=== PATIENT | female | born 1995 | race Caucasian/White ===

== ENCOUNTER → 2017-08-05 | Outpatient (CLI) | payer BC, OTHER ==
--- NOTE | 2017-08-05 13:49 | Diagnostic Imaging Report ---
PROCEDURE: US Gallbladder. TECHNIQUE: Multiple real-time grayscale images were obtained over the right upper quadrant in various projections. INDICATION: Right upper quadrant pain. FINDINGS: The pancreas is partially obscured by bowel gas with no definite abnormality. Visualized portions of the pancreas appear unremarkable. The liver is fairly homogeneous with no focal lesion seen. There is hepatopetal flow noted in the portal vein. The gallbladder demonstrates no stones or wall thickening. No pericholecystic fluid. The CBD is 2 mm in caliber. The right kidney is 10.3 cm in length with no hydronephrosis or focal lesion. There is no fluid collection or free fluid in the upper right side of the abdomen seen. Sonographic Oakley sign is reportedly negative. IMPRESSION: Unremarkable exam. Dictated on workstation # [id number]
== END ==
LOC: RAD 09:22
PROVIDERS: ATTEND Obstetrics & Gynecology
DX: R10.11 Right upper quadrant pain (principal)
CPT/HCPCS: 76705

== ENCOUNTER → 2017-08-18 | Outpatient (CLI) | payer BC, OTHER ==
[~2017-08-18] MED LIST: CATHETER FLUSH 10 ML SYR IV PRN
--- NOTE | 2017-08-18 13:42 | Diagnostic Imaging Report ---
CLINICAL INDICATION: Patient with right upper quadrant pain. COMPARISON: Gallbladder ultrasound dated 08/05/2017. PROCEDURE: The patient was administered 5.03 millicuries of technetium 99m Choletec. After 60 minutes of the images, one can of Ensure was drink followed by another 60 minutes of imaging. A nuclear medicine hepatobiliary scan with ejection fraction was performed. FINDINGS: There is prompt uptake and excretion of radiotracer by the liver. Activity is visible in the gallbladder by 15 minutes and the small bowel by 30 minutes. Ejection fraction of the gallbladder is calculated at 43% (normal >35%). The gallbladder visibly empties on the scans following the ingestion of Ensure. IMPRESSION: Normal hepatobiliary scan with normal gallbladder ejection fraction. Dictated by: Dictated on workstation # [id number]
== END ==
LOC: CARD 09:13
PROVIDERS: ATTEND Obstetrics & Gynecology
DX: R10.11 Right upper quadrant pain (principal)
CPT/HCPCS: 78227

== ENCOUNTER 2017-11-30 13:14 | Emergency (ER) | payer BC ==
[~2017-11-30] VITALS: Ht 162.6 cm; Wt 95.3 kg
[2017-11-30] MEDS ORDERED: CYCLOBENZAPRINE 10 MG (FLEXERIL) TAB PO STA (13:50)
[2017-11-30] MEDS ORDERED: HYDROcodone/APAP 5 MG/325 MG (LORTAB) TAB PO STA (13:50)
--- NOTE | 2017-11-30 14:04 | ED Back Pain ---
General Chief Complaint: Back Problems Stated Complaint: PULLED MUSCLE IN BACK Nursing Triage Note: ARRIVED VIA AMB TO ROOM 05. COMPLAINS OF SEVERE BACK PAIN AFTER LIFTING A BOX TODAY. STATES SHE TOOK A HYDRO 5 BEFORE COMING WHICH HAS HELPED SOME. Nursing Sepsis Screen: No Definite Risk Source of Information: Patient Exam Limitations: No Limitations History of Present Illness Time Seen by Provider: 13:45 Initial Comments 22-year-old female patient presents to the emergency Department with reports of severe low back pain after lifting a box earlier today. Denies feeling anything pop or crack. Reports muscle spasms with movement. Patient does report taking one of her "old hydrocodone 5's" which helped relieve some of the pain. Location: Paraspinous Muscles Timing/Duration: 1-3 Hours Pain/Injury Location: Back Radiation: Other (denies radiation) Method of Injury: Other (lifting a box) Modifying Factors: Worse With Movement, Improves With Pain Medication, Worse With Other (worsened palpation) Associated Symptoms: muscle spasms, No numbness in legs/feet, No tingling in legs/feet, No sensory/motor loss, lower back pain, No loss of bladder control, No loss of bowel control Allergies and Home Medications Allergies Coded Allergies: No Known Drug Allergies (Unverified , 11/30/17) Home Medications Naproxen 500 Mg Tablet, 500 MG PO BID PRN for PAIN-MODERATE, #20 Ref 0 Prescribed by: HERBERT RICARDO on 11/30/171406 Orphenadrine Citrate 100 Mg Tablet.er, 100 MG PO BID PRN for SPASMS, #10 Ref 0 Prescribed by: HERBERT RICARDO on 11/30/171406 Prednisone 20 Mg Tab, 40 MG PO DAILY, #10 Ref 0 Prescribed by: HERBERT RICARDO on 11/30/177 Constitutional: no symptoms reported Respiratory: no symptoms reported Cardiovascular: no symptoms reported Gastrointestinal: No abdominal pain, No constipation, No diarrhea, No nausea, No vomiting Genitourinary: No decreased output, No dysuria, No frequency, No hematuria, No incontinence, No pain Musculoskeletal: see HPI, back pain, No joint pain, No neck pain Skin: no symptoms reported Psychiatric/Neurological: Denies Numbness, Denies Paresthesia, Denies Tingling , Denies Weakness All Other Systems Reviewed Negative Unless Noted: Yes (Negative excepted noted.) Past Klwncdw-Nawwop-Ujqryx Hx Patient Social History Recent Foreign Travel: No Contact w/Someone Who Travel: No Recent Infectious Disease Expo: No Surgeries History of Surgeries: Yes Surgeries: Tonsillectomy Respiratory History of Respiratory Disorde: No Cardiovascular History of Cardiac Disorders: No Neurological History of Neurological Disord: No Reproductive System : No (DEPO SHOT) Genitourinary History of Genitourinary Disor: No Gastrointestinal History of Gastrointestinal Di: No Musculoskeletal History of Musculoskeletal Dis: No Endocrine History of Endocrine Disorders: No HEENT History of HEENT Disorders: No Cancer History of Cancer: No Psychosocial History of Psychiatric Problem: No Integumentary History of Skin or Integumenta: No Reviewed Nursing Assessment Reviewed/Agree w Nursing PMH: Yes Family Medical History Significant Family History: No Pertinent Family Hx Physical Exam Vital Signs Vital Sign - Last 12Hours 11/30/17 11/30/17 13:23 14:21 Temp 98.0 Pulse 83 Resp 16 B/P (MAP) 139/92 (108) Pulse Ox 99 Capillary Refill : Less Than 3 Seconds General Appearance: No Apparent Distress, WD/WN HEENT: PERRL/EOMI, Pharynx Normal Neck: Full Range of Motion, Normal Inspection, Non Tender, Supple Cardiovascular: Regular Rate, Rhythm, No Edema, No Murmur, Normal Peripheral Pulses Respiratory: Lungs Clear, Normal Breath Sounds, No Accessory Muscle Use, No Respiratory Distress Peripheral Pulses: 2+ Radial Pulses (R) (right posterior tibialis 2+), 2+ Radial Pulses (L) (left posterior tibialis 2+) Gastrointestinal: Normal Bowel Sounds, No Organomegaly, Non Tender, Soft, No Distended Back: Normal Inspection, Decreased Range of Motion, Muscle Spasm (bilateral lumbar paraspinous muscle tenderness and muscle spasm with right greater than left), Vertebral Tenderness (mild lumbar vertebral tenderness without deformity or step-off.) Extremity: Normal Capillary Refill, Normal Inspection, Normal Range of Motion, Non Tender, No Calf Tenderness, No Pedal Edema Neurologic/Psychiatric: Alert, Oriented x3, No Motor/Sensory Deficits, Normal Mood/Affect Skin: Normal Color, Warm/Dry, No Ecchymosis Progress/Results/Core Measures Results/Orders My Orders Orders - HERBERT RICARDO Cyclobenzaprine Tablet (Flexeril Tablet) (11/30/17 13:50) Hydrocodone/Apap 5/325 Tablet (Lortab 5 (11/30/17 13:50) Vital Signs/I&O Vital Sign - Last 12Hours 11/30/17 11/30/17 13:23 14:21 Temp 98.0 98.0 Pulse 83 83 Resp 16 16 B/P (MAP) 139/92 (108) Pulse Ox 99 Blood Pressure Mean: 108 Departure Communication (Admissions) Progress Notes Patient seen and evaluated. Patient given one hydrocodone 5/325 mg and Flexeril 10 mg in the emergency department 1 dose. Plan for discharge to home with oral prednisone 40 mg daily, Norflex 100 mg twice daily as needed for spasm , and Naprosyn 500 mg by mouth twice a day as needed for pain. Patient also use Tylenol as needed for pain. Impression Impression: Primary Impression: Low back strain Qualified Codes: S39.012A - Strain of muscle, fascia and tendon of lower back , initial encounter Disposition: HOME, SELF-CARE Condition: Improved Departure-Patient Inst. Decision time for Depature: 13:59 Referrals: CARRIE GUPTA MD (PCP/Family) Primary Care Physician Patient Instructions: Lumbar Muscle Strain (DC) Add. Discharge Instructions: All discharge instructions reviewed with patient and/or family. Voiced understanding. Medications as instructed. Tylenol Extra Strength over-the- counter as directed for pain. Ice packs or heating pads as needed for pain. Avoid heavy lifting, pushing, pulling, twisting, bending, climbing 7 days. Increase activity as tolerated. Follow-up with your family practitioner for recheck if no improvement in symptoms in 7-10 days. Return to the emergency department for worsened symptoms, numbness, weakness, bowel incontinence, bladder incontinence, numbness of the genitals, abdominal pain, or any other concerns. Scripts Naproxen (Naprosyn) 500 Mg Tablet 500 MG PO BID Y for PAIN-MODERATE, #20 TAB 0 Refills Prov: HERBERT RICARDO 11/30/17 Orphenadrine Citrate (Orphenadrine Citrate) 100 Mg Tablet.er 100 MG PO BID Y for SPASMS, #10 TAB 0 Refills Prov: HERBERT RICARDO 11/30/17 Prednisone (Prednisone) 20 Mg Tab 40 MG PO DAILY, #10 TAB 0 Refills Prov: HERBERT RICARDO 11/30/17 Work/School Note: Work Release Form Date Seen in the Emergency Department: Nov 30, 2017 Return to Work: Dec 01, 2017 Other Restrictions Listed Below: Avoid heavy lifting, pushing, pulling, twisting, bending, climbing 7 days HERBERT RICARDO Nov 30, 2017 14:04
[2017-11-30] MEDS ORDERED: PRD20T PO (14:07)
[2017-11-30] MEDS ORDERED: ORPH100T PO (14:07)
[2017-11-30] MEDS ORDERED: NAPR-1071 PO (14:07)
[2017-11-30 14:21] VITALS: BP 139/92
--- OUTSIDE RECORDS SUMMARY | 2017-12-01 19:00 | XMS REPORT | Continuity of Care Document ---
Demographics Preferred Language Unknown Marital Status Unknown Congregation Affiliation Unknown Race Unknown Ethnic Group Unknown Author Author [facility] Address Unknown Phone Unavailable Allergies Active Description Code Type Severity Reaction Onset Reported/Identified Relationship to Patient Clinical Status Yes No Allergy Information Available [id number] Drug Allergy Unknown N/A 2016 Yes No Known Drug Allergies [id number] Drug Allergy Unknown N/A 11/30/2017 Medications There is no data. Problems Date Dx Coded Attending Type Code Diagnosis Diagnosed By 02/28/2013 V03.89 MENINGOCOCCAL DX 02/28/2013 V03.89 MENINGOCOCCAL DX 04/02/2013 704.8 FOLLICULITIS 04/02/2013 709.9 SKIN LESIONS 08/06/2017 DHARMESH BYNUM MD Ot R10.11 RIGHT UPPER QUADRANT PAIN 08/17/2017 DHARMESH BYNUM MD Ot R10.11 RIGHT UPPER QUADRANT PAIN 08/31/2017 DHARMESH BYNUM MD Ot R10.11 RIGHT UPPER QUADRANT PAIN Procedures There is no data. Results There is no data. Encounters ACCT No. Visit Date/Time Discharge Status Pt. Type Provider Facility Loc./Unit Complaint [id number] 03/01/2013 15:17:00 03/01/2013 23:59:59 CLS Outpatient [id number] 04/02/2013 11:05:00 Document Registration [id number] 12/17/2012 17:41:52 RECURRING [id number] 08/18/2017 09:13:00 08/18/2017 23:59:59 CLS Outpatient DHARMESH BYNUM MD [facility] CARD RUQ PAIN [id number] 08/05/2017 09:22:00 08/05/2017 23:59:59 CLS Outpatient DHARMESH BYNUM MD [facility] RAD RUQ PAIN [id number] 08/23/2013 15:08:00 08/23/2013 23:59:59 CLS Outpatient [id number] 05/15/2013 11:15:00 05/15/2013 23:59:59 CLS Outpatient [id number] 11/30/2017 13:16:00 ACT Emergency HALEIGH URIBE, HERBERT Vasquez [facility] ER PULLED MUSCLE IN BACK
== END 2017-11-30 14:21 | disposition home or self-care (01) ==
LOC: EDUNIT# 13:14 → ER 13:16
DX: S39.012A Strain of muscle, fascia and tendon of lower back, initial encounter (principal); Z90.89 Acquired absence of other organs; X50.0XXA Overexertion from strenuous movement or load, initial encounter
CPT/HCPCS: 99283

== ENCOUNTER 2018-06-26 13:15 | Emergency (ER) | payer BC ==
[~2018-06-26] VITALS: Ht 154.9 cm; Wt 90.3 kg
[~2018-06-26 13:15] MED LIST changes: -CATHETER FLUSH 10 ML SYR IV PRN; +NAPR-1071 PO; +ORPH100T PO; +PRD20T PO
--- NOTE | 2018-06-26 13:39 | ED Abdominal Pain ---
General Stated Complaint: LT SIDE ABD PAIN Source of Information: Patient Exam Limitations: No Limitations History of Present Illness Date Seen by Provider: Jun 26, 2018 Time Seen by Provider: 13:35 Initial Comments To Er with 48 hours of left sided abdominal pain. This began 2 days ago and was diffuse. Since its onset 2 days ago, the diffuse pain has resolved but has become more localized and intense on the left side of the upper abdomen. No fever or chills. Nausea but no vomiting. Last bowel movement was this morning but having a bowel movement did not improve the pain. Timing/Duration: 1-2 Days Severity/Quality: Moderate Location: LUQ, LLQ Radiation: No Radiation Associated Symptoms: No Back Pain, No Chest Pain, No Diaphoresis, No Fever/ Chills, No Fatigue; Nausea/Vomiting Allergies and Home Medications Allergies Coded Allergies: No Known Drug Allergies (Unverified , 11/30/17) Home Medications Hydrocodone/Acetaminophen 1 Each Tablet, 1 EACH PO Q4H PRN for PAIN-MILD TO MODERATE Prescribed by: REJI TRAN on 06/26/18 1523 Naproxen 500 Mg Tablet, 500 MG PO BID PRN for PAIN-MODERATE Prescribed by: HERBERT RICARDO on 11/30/17 1407 Orphenadrine Citrate 100 Mg Tablet.er, 100 MG PO BID PRN for SPASMS Prescribed by: HERBERT RICARDO on 11/30/17 140 Prednisone 20 Mg Tab, 40 MG PO DAILY Prescribed by: HERBERT RICARDO on 11/30/17 1407 Sulfamethoxazole/Trimethoprim 1 Each Tablet, 1 EACH PO BID Prescribed by: REJI TRAN on 06/26/18 1523 Patient Home Medication List Home Medication List Reviewed: Yes Review of Systems Constitutional: see HPI EENTM: No Symptoms Reported Respiratory: No Symptoms Reported Cardiovascular: No Symptoms Reported Gastrointestinal: See HPI, Abdominal Pain; Denies Constipated, Denies Diarrhea ; Nausea; Denies Vomiting Genitourinary: No Symptoms Reported Musculoskeletal: no symptoms reported Skin: no symptoms reported Psychiatric/Neurological: No Symptoms Reported Endocrine: No Symptoms Reported Past Itjtxjy-Cqcnrp-Kxpxzo Hx Patient Social History Recent Foreign Travel: No Contact w/Someone Who Travel: No Past Medical History Surgeries: Yes Tonsillectomy Respiratory: No Cardiac: No Neurological: No Genitourinary: No Gastrointestinal: No Musculoskeletal: No Endocrine: No HEENT: No Cancer: No Psychosocial: No Integumentary: No Family Medical History No Pertinent Family Hx Physical Exam Vital Signs Vital Signs - First Documented 06/26/18 13:27 Temp 99.1 Pulse 120 Resp 16 B/P (MAP) 154/95 (114) Pulse Ox 99 O2 Delivery Room Air Capillary Refill : Height/Weight/BMI Height: 5'4.00" Weight: 210lbs. oz. 95.058279qo; BMI Method:Stated General Appearance: WD/WN, no apparent distress HEENT: PERRL/EOMI, normal ENT inspection Neck: non-tender, full range of motion Respiratory: no respiratory distress, no accessory muscle use Cardiovascular: no murmur, tachycardia Gastrointestinal: normal bowel sounds, soft; No distended, No guarding, No rebound; tenderness (left upper) Extremities: normal range of motion, non-tender Neurologic/Psychiatric: alert, normal mood/affect, oriented x 3 Skin: normal color, warm/dry Progress/Results/Core Measures Results/Orders Lab Results Laboratory Tests Test 06/26/18 13:30 06/26/18 13:32 Range/Units White Blood Count 15.1 H 4.3-11.0 10^3/uL Red Blood Count 4.52 4.35-5.85 10^6/uL Hemoglobin 13.5 11.5-16.0 G/DL Hematocrit 39 35-52 % Mean Corpuscular Volume 87 80-99 FL Mean Corpuscular Hemoglobin 30 25-34 PG Mean Corpuscular Hemoglobin Concent 34 32-36 G/DL Red Cell Distribution Width 13.0 10.0-14.5 % Platelet Count 195 130-400 10^3/uL Mean Platelet Volume 10.5 H 7.4-10.4 FL Neutrophils (%) (Auto) 82 H 42-75 % Lymphocytes (%) (Auto) 12 12-44 % Monocytes (%) (Auto) 6 0-12 % Eosinophils (%) (Auto) 0 0-10 % Basophils (%) (Auto) 0 0-10 % Neutrophils # (Auto) 12.4 H 1.8-7.8 X 10^3 Lymphocytes # (Auto) 1.7 1.0-4.0 X 10^3 Monocytes # (Auto) 0.9 0.0-1.0 X 10^3 Eosinophils # (Auto) 0.0 0.0-0.3 10^3/uL Basophils # (Auto) 0.0 0.0-0.1 10^3/uL Neutrophils % (Manual) 83 % Lymphocytes % (Manual) 12 % Monocytes % (Manual) 4 % Eosinophils % (Manual) 1 % Basophils % (Manual) 0 % Band Neutrophils 0 % Blood Morphology Comment NORMAL Urine Color YELLOW Urine Clarity CLEAR Urine pH 6 5-9 Urine Specific [place] 1.015 L 1.016-1.022 Urine Protein 2+ H NEGATIVE Urine Glucose (UA) NEGATIVE NEGATIVE Urine Ketones 2+ H NEGATIVE Urine Nitrite NEGATIVE NEGATIVE Urine Bilirubin NEGATIVE NEGATIVE Urine Urobilinogen NORMAL NORMAL MG/DL Urine Leukocyte Esterase 1+ H NEGATIVE Urine RBC (Auto) 4+ H NEGATIVE Urine RBC 2-5 H /HPF Urine WBC 0-2 /HPF Urine Squamous Epithelial Cells 2-5 /HPF Urine Crystals NONE /LPF Urine Bacteria TRACE /HPF Urine Casts NONE /LPF Urine Mucus NEGATIVE /LPF Urine Culture Indicated NO Sodium Level 133 L 135-145 MMOL/L Potassium Level 3.8 3.6-5.0 MMOL/L Chloride Level 104 98-107 MMOL/L Carbon Dioxide Level 21 21-32 MMOL/L Anion Gap 8 5-14 MMOL/L Blood Urea Nitrogen 7 7-18 MG/DL Creatinine 0.74 0.60-1.30 MG/DL Estimat Glomerular Filtration Rate > 60 BUN/Creatinine Ratio 9 Glucose Level 80 70-105 MG/DL Calcium Level 9.7 8.5-10.1 MG/DL Total Bilirubin 1.0 0.1-1.0 MG/DL Aspartate Amino Transf (AST/SGOT) 22 5-34 U/L Alanine Aminotransferase (ALT/SGPT) 34 0-55 U/L Alkaline Phosphatase 50 40-136 U/L Total Protein 7.3 6.4-8.2 GM/DL Albumin 4.3 3.2-4.5 GM/DL Lipase < 4 L 8-78 U/L Serum Test, Qualitative NEGATIVE NEGATIVE My Orders Orders - REJI TRAN [employer] Cbc With Automated Diff (06/26/18 13:32) Comprehensive Metabolic Panel (06/26/18 13:32) Ua Culture If Indicated (06/26/18 13:32) Urine Bedside (06/26/18 13:32) Iv Heplock-Insert (Order) (06/26/18 13:32) Lipase (06/26/18 13:32) Ct Abdomen/Pelvis W (06/26/18 13:32) Ketorolac Injection (Toradol Injection) (06/26/18 13:45) Ondansetron Injection (Zofran Injectio (06/26/18 13:45) Ns Iv 1000 Ml (Sodium Chloride 0.9%) (06/26/18 13:45) Hcg,Qualitative Serum (06/26/18 13:54) Manual Differential (06/26/18 13:30) Urine Culture (06/26/18 15:08) Ceftriaxone Injection (Rocephin Injectio (06/26/18 15:30) Medications Given in ED Current Medications Medications Dose Ordered Sig/Sean Route Start Time Stop Time Status Last Admin Dose Admin Iohexol 100 ml ONCE ONCE IV 06/26/18 13:45 06/26/18 13:54 DC 06/26/18 14:18 100 ML Ketorolac Tromethamine 30 mg ONCE ONCE IVP 06/26/18 13:45 06/26/18 13:46 DC 06/26/18 13:57 30 MG Ondansetron HCl 4 mg ONCE ONCE IVP 06/26/18 13:45 06/26/18 13:46 DC 06/26/18 13:57 4 MG Sodium Chloride 250 ml ONCE ONCE IV 06/26/18 13:45 06/26/18 13:54 DC 06/26/18 14:18 250 ML Vital Signs/I&O 06/26/18 13:27 Temp 99.1 Pulse 120 Resp 16 B/P (MAP) 154/95 (114) Pulse Ox 99 O2 Delivery Room Air Diagnostic Imaging Diagonstic Imaging: CT Comments NAME: MIRTA URIARTE [facility] REC#: [id number] PT STATUS: REG ER : 1995 PHYSICIAN: REJI TRAN APRN ADMIT DATE: 06/26/18/ER Draft Date of Exam:06/26/18 CT ABDOMEN/PELVIS W PROCEDURE: CT abdomen and pelvis with contrast. TECHNIQUE: Multiple contiguous axial images were obtained through the abdomen and pelvis after administration of intravenous contrast. INDICATION: Left-sided abdominal pain with fever and nausea x 3 days. CORRELATION STUDY: None. FINDINGS: LOWER THORAX: Clear. LIVER: Likely small area of fatty infiltration along the falciform ligament. The liver size is upper limits of normal. GALLBLADDER: Present and unremarkable. Very slight fold at its fundal aspect. No bile duct dilatation. SPLEEN: Mildly enlarged at 13 cm craniocaudal length. PANCREAS: Unremarkable. ADRENAL GLANDS: There may be very fatty low-density nodularity at the tip of the left adrenal gland which may be reflective of an adenoma. Otherwise, unremarkable. KIDNEYS: There is a small area of asymmetric diminished enhancement along the peripheral cortex of the left mid to superior aspect of the kidney. Tiny low-density foci superiorly may be reflective of a small cyst. The right kidney is unremarkable. There is no hydronephrosis of either kidney. ABDOMINAL AORTA: Unremarkable, nonaneurysmal. GASTROINTESTINAL TRACT: No obstruction. A few colonic diverticuli are present. A normal appendix is located in the right lower quadrant. A few mildly prominent fluid-filled loops of small bowel are noted. URINARY BLADDER: Relatively decompressed. REPRODUCTIVE: Uterus and adnexa are unremarkable. OSSEOUS STRUCTURES: There are multiple small foci of increased density. This appears to be involving the bony structures of the pelvis including the sacrum as well as proximal femurs. Relative sparing of the visualized spine. OTHER: None. IMPRESSION: 1. Very slight diminished enhancement of the superior pole of the left kidney. This is nonspecific and could be reflective of a focal area of pyelonephritis. A small solid mass lesion is not excluded. Correlation with urinalysis recommended. Short-term followup initially with renal ultrasound imaging is recommended. 2. Mild severity splenomegaly. 3. Multifocal areas of small sclerotic foci over the pelvis and proximal femurs. This finding is nonspecific and could be somewhat of an atypical appearance for osseous metastatic disease. An underlying more systemic process is suspect. Dictated on workstation # [id number] Dict: 06/26/18 1433 Trans: 06/26/18 1452 [id number] Interpreted by: MILLI MEJÍA DO Electronically signed by: Departure Communication (Admissions) Spoke with Dr. Chandra. She agrees with treating empirically for pyelonephritis. I also spoke with patient's primary care provider Dr. Gupta who agrees with this plan. We will force culture the urine, pain medication. Dr. Gupta will follow his clinic this Tuesday at 3:30 PM. Impression Primary Impression: LUQ pain Additional Impression: Pyelonephritis Disposition: HOME, SELF-CARE Condition: Stable Departure-Patient Inst. Decision time for Depature: 15:03 Referrals: CARRIE GUPTA MD (PCP/Family) Primary Care Physician Patient Instructions: Urinary Tract Infection, Adult (DC) Add. Discharge Instructions: 1. Antibiotics as directed 2. I have made an appointment for you to see Dr. Gupta this Tuesday at 3:30 PM. Return to ER for any concerns. Scripts Hydrocodone/Acetaminophen ([place] 5-325 Tablet) 1 Each Tablet 1 EACH PO Q4H PRN for PAIN-MILD TO MODERATE, #14 TAB Prov: REJI TRAN APRN 06/26/18 Sulfamethoxazole/Trimethoprim (Bactrim Ds Tablet) 1 Each Tablet 1 EACH PO BID, #14 TAB Prov: REJI TRAN APRN 06/26/18 Work/School Note: Work Release Form Date Seen in the Emergency Department: Jun 26, 2018 Return to Work: Jun 29, 2018 Copy Copies To 1: CARRIE GUPTA MD, PETER J APRN Jun 26, 2018 13:39
[2018-06-26] MEDS ORDERED: NS IV 1000 ML 1,000 ML IV SCH (13:45)
[2018-06-26] MEDS ORDERED: KETOROLAC 30 MG/ML VIAL IVP ONE (13:45)
[2018-06-26] MEDS ORDERED: NS 250 ML (IVPB) BAG IV ONE (13:45)
[2018-06-26] MEDS ORDERED: ONDANSETRON 4 MG/2 ML (SDV) Z0FRAN IVP ONE (13:45)
[2018-06-26] MEDS ORDERED: IOHEXOL 350 MG/ML 100 ML (OMNIPAQUE 350) VIAL IV ONE (13:45)
[2018-06-26 13:57] LABS: BILIRUBIN,URINE NEGATIVE (NEGATIVE); CLARITY,URINE CLEAR; COLOR,URINE YELLOW; GLUCOSE, URINE (UA) NEGATIVE (NEGATIVE); KETONES,URINE 2+ (NEGATIVE); LEUKOCYTE ESTERASE ,URINE 1+ (NEGATIVE); NITRITE,URINE NEGATIVE (NEGATIVE); PH,URINE 6 (5-9); PROTEIN,URINE 2+ (NEGATIVE); UROBILINOGEN,URINE NORMAL (NORMAL)
[2018-06-26 13:59] LABS: BASOPHILS % (AUTO) 0 % (0-10); EOSINOPHILS % (AUTO) 0 % (0-10); HEMATOCRIT 39 % (35-52); HEMOGLOBIN 13.5 G/DL (11.5-16.0); LYMPHOCYTES # (AUTO) 1.7 X 10^3 (1.0-4.0); LYMPHOCYTES % (AUTO) 12 % (12-44); MEAN CORPUSCULAR HEMOGLOBIN 30 PG (25-34); MEAN CORPUSCULAR HGB CONC 34 G/DL (32-36); MEAN CORPUSCULAR VOLUME 87 FL (80-99); MEAN PLATELET VOLUME 10.5 FL (7.4-10.4); MONOCYTES # (AUTO) 0.9 X 10^3 (0.0-1.0); MONOCYTES % (AUTO) 6 % (0-12); NEUTROPHILS # (AUTO) 12.4 X 10^3 (1.8-7.8); NEUTROPHILS % (AUTO) 82 % (42-75); PLATELET COUNT 195 10^3/uL (130-400); RED BLOOD COUNT 4.52 10^6/uL (4.35-5.85); WHITE BLOOD COUNT 15.1 10^3/uL (4.3-11.0)
[2018-06-26] MEDS ORDERED: RECEIVED CONTRAST (Hold Metformin) IV SCH (14:00)
[2018-06-26 14:06] LABS: BACTERIA,URINE TRACE /HPF; WBC,URINE 0-2 /HPF
[2018-06-26 14:14] LABS: ALANINE AMINOTRANSFERASE 34 U/L (0-55); ALBUMIN 4.3 GM/DL (3.2-4.5); ALKALINE PHOSPHATASE 50 U/L (40-136); BUN/CREATININE RATIO 9; CALCIUM 9.7 MG/DL (8.5-10.1); CARBON DIOXIDE 21 MMOL/L (21-32); CHLORIDE 104 MMOL/L (98-107); CREATININE SERUM 0.74 MG/DL (0.60-1.30); GFR ESTIMATED > 60; GLUCOSE 80 MG/DL (70-105); LIPASE < 4 U/L (8-78); POTASSIUM 3.8 MMOL/L (3.6-5.0); SODIUM 133 MMOL/L (135-145); TOTAL PROTEIN 7.3 GM/DL (6.4-8.2)
[2018-06-26 14:21] LABS: BAND NEUTROPHILS 0 %; BASOPHILS % (MANUAL) 0 %; EOSINOPHILS % (MANUAL) 1 %; LYMPHOCYTES % (MANUAL) 12 %; MONOCYTES % (MANUAL) 4 %; NEUTROPHILS % (MANUAL) 83 %; RBC MORPH NORMAL
--- NOTE | 2018-06-26 14:52 | Diagnostic Imaging Report ---
PROCEDURE: CT abdomen and pelvis with contrast. TECHNIQUE: Multiple contiguous axial images were obtained through the abdomen and pelvis after administration of intravenous contrast. INDICATION: Left-sided abdominal pain with fever and nausea x 3 days. CORRELATION STUDY: None. FINDINGS: LOWER THORAX: Clear. LIVER: Likely small area of fatty infiltration along the falciform ligament. The liver size is upper limits of normal. GALLBLADDER: Present and unremarkable. Very slight fold at its fundal aspect. No bile duct dilatation. SPLEEN: Mildly enlarged at 13 cm craniocaudal length. PANCREAS: Unremarkable. ADRENAL GLANDS: There may be very fatty low-density nodularity at the tip of the left adrenal gland which may be reflective of an adenoma. Otherwise, unremarkable. KIDNEYS: There is a small area of asymmetric diminished enhancement along the peripheral cortex of the left mid to superior aspect of the kidney. Tiny low-density foci superiorly may be reflective of a small cyst. The right kidney is unremarkable. There is no hydronephrosis of either kidney. ABDOMINAL AORTA: Unremarkable, nonaneurysmal. GASTROINTESTINAL TRACT: No obstruction. A few colonic diverticuli are present. A normal appendix is located in the right lower quadrant. A few mildly prominent fluid-filled loops of small bowel are noted. URINARY BLADDER: Relatively decompressed. REPRODUCTIVE: Uterus and adnexa are unremarkable. OSSEOUS STRUCTURES: There are multiple small foci of increased density. This appears to be involving the bony structures of the pelvis including the sacrum as well as proximal femurs. Relative sparing of the visualized spine. OTHER: None. IMPRESSION: 1. Very slight diminished enhancement of the superior pole of the left kidney. This is nonspecific and could be reflective of a focal area of pyelonephritis. A small solid mass lesion is not excluded. Correlation with urinalysis recommended. Short-term followup initially with renal ultrasound imaging is recommended. 2. Mild severity splenomegaly. 3. Multifocal areas of small sclerotic foci over the pelvis and proximal femurs. This finding is nonspecific and could be somewhat of an atypical appearance for osseous metastatic disease. An underlying more systemic process is suspect. Dictated by: Dictated on workstation # [id number]
[2018-06-26] MEDS ORDERED: HYDR-757 PO (15:23)
[2018-06-26] MEDS ORDERED: SULF1TAB35 PO (15:23)
[2018-06-26] MEDS ORDERED: cefTRIAXone INJECTION 1,000 MG in NS (IVPB) 50 ML IV ONE (15:30)
[2018-06-26 16:15] VITALS: BP 130/75
--- OUTSIDE RECORDS SUMMARY | 2018-06-26 22:06 | XMS REPORT | Continuity of Care Document ---
Demographics Preferred Language Unknown Marital Status Unknown Yazidi Affiliation Unknown Race Unknown Ethnic Group Unknown Author Author [facility] Address Unknown Phone Unavailable Allergies Active Description Code Type Severity Reaction Onset Reported/Identified Relationship to Patient Clinical Status Yes No Allergy Information Available [id number] Drug Allergy Unknown N/A 2016 Yes No Known Drug Allergies [id number] Drug Allergy Unknown N/A 11/30/2017 Medications There [...] MD Ot R10.11 RIGHT UPPER QUADRANT PAIN 11/30/2017 HERBERT HODGE Ot M54.9 DORSALGIA, UNSPECIFIED 11/30/2017 HERBERT HODGE Ot S39.012A STRAIN OF MUSCLE, FASCIA AND TENDON OF L 11/30/2017 HERBERT HODGE Ot X50.0XXA OVEREXERTION FROM STRENUOUS MOVEMENT OR 11/30/2017 HERBERT HODGE Ot Z90.89 ACQUIRED ABSENCE OF OTHER ORGANS 11/30/2017 DHARMESH BYNUM MD Ot R10.11 RIGHT UPPER QUADRANT PAIN 11/30/2017 DHARMESH BYNUM MD Ot R10.11 RIGHT UPPER QUADRANT PAIN 11/30/2017 DHARMESH BYNUM MD Ot R10.11 RIGHT UPPER QUADRANT PAIN 11/30/2017 DHARMESH BYNUM MD Ot R10.11 RIGHT UPPER QUADRANT PAIN 12/02/2017 HERBERT HODGE Ot M54.9 DORSALGIA, UNSPECIFIED 12/02/2017 HERBERT HODGE Ot S39.012A STRAIN OF MUSCLE, FASCIA AND TENDON OF L 12/02/2017 H[place] URIBE HERBERT Vasquez Ot X50.0XXA OVEREXERTION FROM STRENUOUS MOVEMENT OR 12/02/2017 HERBERT HODGE Ot Z90.89 ACQUIRED ABSENCE OF OTHER ORGANS Procedures There is no data. Results Test Result Range Thyroid Stimulating Hormone - 04/13/17 08:30 TSH 2.25 mIU/mL 0.32-5.00 Encounters ACCT No. Visit Date/Time Discharge Status Pt. Type Provider Facility Loc./Unit Complaint [id number] 03/01/2013 15:17:00 03/01/2013 23:59:59 CLS Outpatient [id number] 04/02/2013 11:05:00 Document Registration [id number] 12/17/2012 17:41:52 RECURRING [id number] 04/13/2017 14:34:00 04/13/2017 23:59:00 DIS Outpatient Marshall Olmos [id number] 04/13/2017 14:05:00 04/13/2017 14:05:00 CAN Outpatient Marshall Olmos [id number] 11/30/2017 13:16:00 11/30/2017 14:21:00 DIS Emergency HERBERT HODGE Via [facility] ER PULLED MUSCLE IN BACK [id number] 08/18/2017 09:13:00 08/18/2017 23:59:59 CLS Outpatient DHARMESH BYNUM MD [facility] CARD RUQ PAIN [id number] 08/05/2017 09:22:00 08/05/2017 23:59:59 CLS Outpatient DHARMESH BYNUM MD [facility] RAD RUQ PAIN [id number] 08/23/2013 15:08:00 08/23/2013 23:59:59 CLS Outpatient [id number] 05/15/2013 11:15:00 05/15/2013 23:59:59 CLS Outpatient
== END 2018-06-26 16:15 | disposition home or self-care (01) ==
LOC: EDUNIT# 13:15 → ER 13:17
DX: N12 Tubulo-interstitial nephritis, not specified as acute or chronic (principal); Z90.89 Acquired absence of other organs; Z79.52 Long term (current) use of systemic steroids
CPT/HCPCS: 36415; 74177; 80053; 81000; 83690; 84703; 85007; 85027; 87077; 87088; 87186; 96361; 96365; 96375